=== PATIENT | male | born 1995 | race Caucasian/White ===

== ENCOUNTER → 2021-06-19 | Outpatient (CLI) | payer BC | LOC: M LABSMTC 11:52 | PROVIDERS: ATTEND Anesthesiology | DX: Z01.818 Encounter for other preprocedural examination (principal); Z11.52 Encounter for screening for COVID-19 ==

== ENCOUNTER 2021-06-24 09:48 | Day surgery (SDC) | payer OTHER ==
[~2021-06-24] VITALS: Ht 177.8 cm; Wt 109.3 kg
[~2021-06-24 09:48] MED LIST: AMPICILLIN SOD/SULBACTAM SOD 3 GM in D5W MINI-BAG PLUS 100 ML IV ONE; LR 1,000 ML IV ONE; dexameTHASONE 4 MG/ML 1ML VIAL (J1100 PER 1MG) IV ONE
[2021-06-24] MEDS ORDERED: MIDAZOLAM INJ 2MG/2ML VIAL (J2250 PER 1MG) As Ordered ONE (12:36)
[2021-06-24] MEDS ORDERED: ONDANSETRON 4MG/2ML VIAL As Ordered ONE (12:37)
[2021-06-24] MEDS ORDERED: dexameTHASONE 4 MG/ML 1ML VIAL (J1100 PER 1MG) As Ordered ONE (12:37)
[2021-06-24] MEDS ORDERED: ROCURONIUM BROMIDE 50 MG/5 ML VIAL As Ordered ONE (12:37)
[2021-06-24] MEDS ORDERED: LIDOCAINE 2% 100MG/5ML SDV (FOR ANES.) As Ordered ONE (12:37)
[2021-06-24] MEDS ORDERED: SUGAMMADEX SODIUM 500 MG/5 ML VIAL (BRIDION) As Ordered ONE (12:37)
[2021-06-24] MEDS ORDERED: fentaNYL 100 MCG/2 ML INJECTION (J3010) As Ordered ONE (12:37)
[2021-06-24] MEDS ORDERED: ACETAMINOPHEN 1000MG 100ML IV BTL (OFIRMEV) (J0131 PER 10MG) As Ordered ONE (12:37)
[2021-06-24] MEDS ORDERED: propofoL 200 MG/20 ML VIAL As Ordered ONE (12:37)
[2021-06-24] MEDS ORDERED: CHLORHEXIDINE GLUCONATE 0.12 % 15ML UDC (PERIDEX ORAL RINSE) As Ordered ONE (14:06)
[2021-06-24] MEDS ORDERED: LIDOCAINE 2% W/ EPINEPHRINE 1.7 ML DENTAL INJ As Ordered ONE (14:06)
[2021-06-24] MEDS ORDERED: HYDROmorphone HCL 2 MG/ML 1ML VIAL (J1170) As Ordered ONE (15:38)
[2021-06-24] MEDS ORDERED: oxyCODONE 5MG TAB PO PRN (16:45)
[2021-06-24] MEDS ORDERED: LR 1,000 ML IV SCH (16:45)
[2021-06-24] MEDS ORDERED: ONDANSETRON 4MG/2ML VIAL IV PRN (16:45)
[2021-06-24] MEDS: fentaNYL 100 MCG/2 ML INJECTION (J3010) IV PRN ×2 (16:51→17:04)
[2021-06-24 19:10] VITALS: BP 155/90
--- NOTE | 2021-06-25 07:31 | RO ---
OPERATIVE NOTE DATE OF OPERATION: 06/24/2021 PREOPERATIVE DIAGNOSIS: 1. Morbid obesity, severe dental anxiety, difficult airway. 2. Grossly decayed and symptomatic teeth #2, 3, 4, 5, 6, 7, 8, 9, 10, 11, 12, 13, 14, 15, 18, 19, 20, 30, 31 and impacted wisdom teeth #1, 16, 17, 32. POSTOPERATIVE DIAGNOSIS: Status post the above. PROCEDURE PERFORMED: Extraction of teeth #2, 3, 4, 5, 6, 7, 8, 9, 10, 11, 12, 13, 14, 15, 18, 19, 20, 30 and 31. SURGEON: Tong Torres DMD ASSISTANTS: None. ANESTHESIA: General endotracheal anesthesia via nasal ANDREA. SPECIMEN: Teeth for gross only. INDICATIONS FOR SURGERY: Jah is a pleasant 26-year-old male referred to my office by a dentist for evaluation for extraction of the aforementioned teeth and discussion for removal of his wisdom teeth. He does have daily history of pain that is stemming from of all of the decayed teeth. He does have asymptomatic impacted wisdom teeth. Clinical exam reveals wisdom teeth are fully impacted and grossly decayed teeth as aforementioned. He is morbidly obese, has a Mallampati 4 which makes him not an ideal candidate for office anesthesia in combination with his severe dental anxiety. We discussed general anesthesia in an operating room setting and that is what he elected to do. I did offer local and nitrous oxide in the office and he declined it. All the risks, benefits and alternatives were explained to the patient. A complete history and physical was performed and in the patient's chart and informed consent was explained in detail and was signed. DESCRIPTION OF PROCEDURE: The patient was taken back to the operating room. He was laid supine on the operating room table. Ulnar nerve protectors were placed. Noninvasive cardiac monitors were applied. At that point, the patient underwent general anesthesia and was intubated with a nasal ANDREA. He was prepped and draped in the usual sterile fashion. A timeout procedure was performed to identify the patient, the procedure and any other precautions. Preoperative antibiotics were given in the IV as well as IV steroids. At this point, a moist throat pack was inserted in the oropharynx followed by administration of 10 carpules of 2% lidocaine with 1:100,000 epinephrine as local infiltrations and blocks. A full thickness flap was released in sites #2, 3, 4, 11, 14, 15, 18, 19, 20, 30 and 31. A Surgitome was used to remove and to create a buccal trough around these teeth. At this point, the teeth were then luxated and delivered. All the sockets were curetted and irrigated. An abundant amount of granulation tissue and necrotic tissue was noted at sites #3, 19, 18 and 31. The inferior alveolar nerve was not noted. No sinus exposure was noted. Gelfoams were placed and the flaps were then closed with 3-0 Chromics. To note, these extractions were difficult, especially teeth #2, 3 and 30 and 31. These were difficult extractions. However, there were no complications to mention at the time of the procedure. At this point, attention was then given to teeth #4, 5, 6, 7, 8, 9, 10, 12, 13 where routine extraction was performed in these teeth areas without any incident and the teeth were removed in a routine fashion. All the sockets were curetted and irrigated and gauze hemostasis was achieved and noted. At this point, I elected not to remove the four wisdom teeth due to the fact that at this point, these extractions have been difficult. Therefore, I elected to not to remove these wisdom teeth especially when they have been asymptomatic and they will be readdressed in the future should they become symptomatic. At this point once the teeth were removed, the oral cavity was irrigated and suctioned. The throat pack was removed. The patient was awakened from general anesthesia and taken back to the PACU. ESTIMATED BLOOD LOSS: 50 mL DRAINS: There were no drains placed. COMPLICATIONS: None.
== END 2021-06-24 19:20 | disposition home or self-care (01) ==
LOC: M SDC 09:48
PROVIDERS: ATTEND Dentist
DX: K02.9 Dental caries, unspecified (principal); K01.1 Impacted teeth; F40.232 Fear of other medical care; E66.01 Morbid (severe) obesity due to excess calories; Z68.34 Body mass index [BMI] 34.0-34.9, adult; E07.9 Disorder of thyroid, unspecified; I10 Essential (primary) hypertension
CPT/HCPCS: 88300; D7210; D9223; J0131; J1100; J1170; J2250; J2405; J3010